=== PATIENT | female | born 2000 | race Caucasian/White ===

== ENCOUNTER 2022-01-01 11:13 | Observation (INO) ==
[2022-01-01] MEDS ORDERED: ONDANSETRON INJ 2 MG/ML 2 ML VIAL IV STA (11:55)
[2022-01-01] MEDS ORDERED: SODIUM CHLORIDE 0.9% 1000ML 1,000 ML IV STA (11:55)
--- NOTE | 2022-01-01 11:59 | Emergency Department Note ---
Impression & Plan Diarrhea, Transaminitis, Ketonuria, Acute hypokalemia ED Provider Note HISTORY OF PRESENT ILLNESS: Patient is a 21-year-old female presenting with diarrhea and dehydration. Patient reports that she has had persistent diarrhea daily for the last 9 days. Was seen in the emergency department 4 days ago and felt better after IV fluids and antiemetics. She states that since discharge, she has been having persistent episodes of mucus-filled and watery diarrhea. Reports nausea but no vomiting. Reports decreased oral intake over the last few days. She states she feels very rundown. Reports more than 6 episodes of diarrhea a day. Denies any recent travel. She was on oral antibiotics for UTI diagnosed 4 days ago. She reports that she was previously on antibiotics 3 weeks ago for an ear infection. Denies any recent exposure to contacts with similar symptoms. Denies any dysuria. Reports low-grade fevers at home. Reports generalized cramping abdominal pain. Denies any history of abdominal surgeries. Denies any rashes. ROS: Constitutional: No chills, or weakness +fever; +fatigue Skin: No rash or diaphoresis HENT: No headaches or congestion Eyes: No vision changes Cardio: No chest pain, palpitations or leg swelling Respiratory: No cough, wheezing or shortness of breath GI: No vomiting, constipation +nausea; +diarrhea : No dysuria, polyuria MSK: No joint or back pain Neuro: No loss of sensation, confusion, focal deficits, numbness, tingling Psychiatric: No mood changes PHYSICAL EXAM: Constitutional: Patient appears in no acute distress. HENT: Head: Normocephalic and atraumatic. Eyes: EOMI, PERRL Mouth/Throat: Mucous membranes dry. Neck: Trachea midline. Neck supple. Cardiovascular: Tachycardic with regular rhythm. No murmurs, rubs or gallops. Intact distal pulses. Pulmonary/Chest: No respiratory distress. Breath sounds clear and equal bilaterally. No wheezes or rales. No chest wall tenderness to palpation. Abdominal: BS +. Abdomen soft, no rebound or guarding. Generalized TTP. Back: No midline spinal tenderness, no paraspinal tenderness, no CVA ten derness. Musculoskeletal: No edema, tenderness or deformity noted. Skin: Warm and dry. No rash, erythema, pallor or cyanosis Psychiatric: Appropriate mood and affect for situation. Neurological: Alert and keenly responsive. CN II-XII grossly intact, moving all extremities equally and fully. MDM: - Vitals signs showed tachycardia. - Laboratory workup showed normal WBC; hypokalemia (K 3.0); transaminitis (AST 369; ALT 571) - UA significant for ketonuria. - Chart reviewed from patient's previous visit. Her transaminitis is significantly worsened from 4 days ago. I added an acetaminophen level to assess for further causes other than viral illness. - CT abdomen/pelvis with IV contrast showed diffuse colonic wall thickening suggestive of nonspecific colitis. She is also noted to have trace pleural effusions. - Patient given 1L NS in ER. - Oral potassium replacement ordered. - Stool studies ordered, but patient has not given stool sample yet. - Given her continued symptoms and transaminitis, hospitalist Dr. Trammell consulted for admission. - Patient admitted to hospitalist service for further evaluation and management. ASSESSMENT AND PLAN: Diagnosis: diarrheal illness; transaminitis; hypokalemia; ketonuria Plan: admit Past Med/Surg History Medical History ADHD Allergy-induced asthma inhaler prn Barretts esophagus GERD (gastroesophageal reflux disease) History of esophageal dilatation recently done 11/21/2019 Surgical History History of esophagogastroduodenoscopy (EGD) recently done 11/21/2019 @ [facility] History of wisdom tooth extraction Family History Family/Other Family history of diabetes mellitus cousin Grandfather (Maternal) Family history of diabetes mellitus Other No family history of adverse response to anesthesia Social History Smoking Status: Never smoker Second Hand Exposure: No; Hx Alcohol Use: No Hx Substance Use: No Preferred Language: Cypriot Communication Ability: Effective Catalyst Concentration Operator Required: No Beliefs That Will Affect Care: None Current Living Situation: Parent Current Living Situation Comment: Lives with mom Feels Safe at Home: Yes Assistive Devices: Contacts and Glasses Allergies Allergies Allergy/AdvReac Type Severity Reaction Status Date / Time cashew nut Allergy Severe throat/lip Verified 12/28/21 18:49 swelling pistachio nut Allergy Severe throat/lip Verified 12/28/21 18:49 swelling Home Meds Home Medications Medication Instructions Recorded Confirmed methylphenidate HCl 30 mg biphasic 30 mg PO QAM 12/22/19 12/28/21 30-70 capsule,extended release montelukast 10 mg tablet 10 mg PO HS 12/22/19 12/28/21 (Singulair) multivitamin 1 tab PO QAM 12/22/19 12/28/21 omeprazole 20 mg capsule,delayed 20 mg PO QAM 12/28/21 12/28/21 release Previous Rx's Medication Instructions Recorded cephalexin 500 mg capsule 500 mg PO BID 5 days #10 caps 12/28/21 Results & Data (ED) Vital Signs Vital Signs - 24 hr 01/01/22 11:19 01/01/22 12:59 01/01/22 13:00 Temperature 36.7 C Temperature Source Temporal Artery Scan Pulse Rate 116 H Pulse Rate [Finger] Pulse Rate from SpO2 Sensor 88 Pulse Rhythm Regular Pulse Rhythm [Finger] Pulse Strength Normal Pulse Strength [Finger] Respiratory Rate 20 Respiratory Effort / Characteristics Non-Labored Spontaneous Respiratory Depth Normal Respiratory Pattern Regular Blood Pressure 115/75 110/75 Blood Pressure [Right Arm] Blood Pressure Mean 88 86 Blood Pressure Mean [Right Arm] Blood Pressure Position Sitting Blood Pressure Position [Right Arm] Pulse Oximetry 96 96 Oxygen Delivery Method Room Air Sepsis Recent Fever Within 48 Hours No Sepsis New/Unexplained Change in Mental Status N/A Sepsis Action Taken by Nursing No Action Required 01/01/22 13:00 01/01/22 18:21 01/01/22 18:21 Temperature Temperature Source Pulse Rate Pulse Rate [Finger] Pulse Rate from SpO2 Sensor 86 94 H Pulse Rhythm Pulse Rhythm [Finger] Pulse Strength Pulse Strength [Finger] Respiratory Rate Respiratory Effort / Characteristics Respiratory Depth Respiratory Pattern Blood Pressure 123/71 Blood Pressure [Right Arm] Blood Pressure Mean 88 Blood Pressure Mean [Right Arm] Blood Pressure Position Blood Pressure Position [Right Arm] Pulse Oximetry 96 95 Oxygen Delivery Method Sepsis Recent Fever Within 48 Hours Sepsis New/Unexplained Change in Mental Status Sepsis Action Taken by Nursing 01/01/22 18:30 01/01/22 15:30 Temperature Temperature Source Pulse Rate Pulse Rate [Finger] 88 Pulse Rate from SpO2 Sensor 91 H Pulse Rhythm Pulse Rhythm [Finger] Regular Pulse Strength Pulse Strength [Finger] Normal Respiratory Rate 18 Respiratory Effort / Characteristics Non-Labored Spontaneous Respiratory Depth Normal Respiratory Pattern Blood Pressure Blood Pressure [Right Arm] 119/78 Blood Pressure Mean Blood Pressure Mean [Right Arm] 91 Blood Pressure Position Blood Pressure Position [Right Arm] Lying Pulse Oximetry 94 97 Oxygen Delivery Method Room Air Sepsis Recent Fever Within 48 Hours Sepsis New/Unexplained Change in Mental Status Sepsis Action Taken by Nursing Laboratory Data Result diagrams: 01/01/22 11:41 01/01/22 12:46 Lab Results 01/01/22 01/01/22 01/01/22 Range/Units 11:41 11:41 11:41 WBC 8.64 (4.8-10.8) K/ul RBC 5.00 (3.93-5.22) M/uL Hgb 14.0 (12.0-16.0) g/dl Hct 40.1 (34.1-44.9) % MCV 80.2 (80.0-100.0) fL MCH 28.0 (25.0-34.0) pg MCHC 34.9 (32.0-36.0) g/dL RDW Std Deviation 35.9 L (36.4-46.3) fL RDW Coeff of Bob 12.6 (11.5-14.5) % Plt Count 243 (130-400) K/uL MPV 11.1 (9.4-12.3) fL Neutrophils % (Manual) 39 % Lymphocytes % (Manual) 21 % Reactive Lymphs % (Man) 35 % Monocytes % (Manual) 5 % Neutrophils # (Manual) 3.37 (1.4-6.5) K/uL Lymphocytes # (Manual) 1.81 (1.2-3.4) K/uL Reactive Lymphs # 3.02 K/uL Monocytes # (Manual) 0.43 (0.24-0.82) K/uL Echinocytes 1+ Sodium 134 L (136-145) mmol/L Potassium TNP Chloride 99 (98-107) mmol/L Carbon Dioxide 23 (21-32) mmol/L Anion Gap 12 H (3-11) BUN 6 (6-23) mg/dl Creatinine 0.59 L (0.6-1.2) mg/dl Est Cr Clr Drug Dosing 147.9 ml/min Est GFR ( Amer) > 150.0 ml/min Est GFR (Non-Af Amer) 130.1 ml/min BUN/Creatinine Ratio 10.2 (10-20) Glucose 79 (70-99(Fasting)) mg/dl Lactate 0.8 (0.4-2.0) mmol/L Calcium 8.7 (8.5-10.1) mg/dl Magnesium 2.1 (1.7-2.4) mg/dl Total Bilirubin 0.7 (0.2-1.0) mg/dl AST TNP ALT 571 H (7-52) U/L Alkaline Phosphatase 195 H (34-104) U/L Total Protein 7.9 (6.0-8.3) gm/dl Albumin 4.1 (3.4-5.0) gm/dl Globulin 3.8 (2.5-4.0) gm/dl Albumin/Globulin Ratio 1.1 (0.9-2) Lipase 40 (11-82) U/L Urine Color Urine Appearance (Clear) Urine pH (4.5-7.5) Ur Specific [place] (1.000-1.030) Urine Protein (Negative) Urine Glucose (UA) (Negative) Urine Ketones (Negative) Urine Blood (Negative) Urine Nitrite (Negative) Urine Bilirubin (Negative) Urine Urobilinogen (Negative) Ur Leukocyte Esterase (Negative) Urine WBC (Auto) (0-5) /hpf Urine RBC (Auto) (0-4) /hpf U Hyaline Cast (Auto) (0-5) /lpf U Epithel Cells (Auto) (0-5) /lpf Urine Bacteria (Auto) (Negative) POC Ur Test (NEG) 01/01/22 01/01/22 01/01/22 Range/Units 12:20 12:36 12:46 WBC (4.8-10.8) K/ul RBC (3.93-5.22) M/uL Hgb (12.0-16.0) g/dl Hct (34.1-44.9) % MCV (80.0-100.0) fL MCH (25.0-34.0) pg MCHC (32.0-36.0) g/dL RDW Std Deviation (36.4-46.3) fL RDW Coeff of Bob (11.5-14.5) % Plt Count (130-400) K/uL MPV (9.4-12.3) fL Neutrophils % (Manual) % Lymphocytes % (Manual) % Reactive Lymphs % (Man) % Monocytes % (Manual) % Neutrophils # (Manual) (1.4-6.5) K/uL Lymphocytes # (Manual) (1.2-3.4) K/uL Reactive Lymphs # K/uL Monocytes # (Manual) (0.24-0.82) K/uL Echinocytes Sodium (136-145) mmol/L Potassium 3.0 L Chloride (98-107) mmol/L Carbon Dioxide (21-32) mmol/L Anion Gap (3-11) BUN (6-23) mg/dl Creatinine (0.6-1.2) mg/dl Est Cr Clr Drug Dosing ml/min Est GFR ( Amer) ml/min Est GFR (Non-Af Amer) ml/min BUN/Creatinine Ratio (10-20) Glucose (70-99(Fasting)) mg/dl Lactate (0.4-2.0) mmol/L Calcium (8.5-10.1) mg/dl Magnesium (1.7-2.4) mg/dl Total Bilirubin (0.2-1.0) mg/dl AST 369 H ALT (7-52) U/L Alkaline Phosphatase (34-104) U/L Total Protein (6.0-8.3) gm/dl Albumin (3.4-5.0) gm/dl Globulin (2.5-4.0) gm/dl Albumin/Globulin Ratio (0.9-2) Lipase (11-82) U/L Urine Color Dark Yellow Urine Appearance Cloudy A (Clear) Urine pH 6.0 (4.5-7.5) Ur Specific [place] 1.020 (1.000-1.030) Urine Protein 1+ H (Negative) Urine Glucose (UA) Negative (Negative) Urine Ketones 4+ H (Negative) Urine Blood 3+ H (Negative) Urine Nitrite Negative (Negative) Urine Bilirubin Negative (Negative) Urine Urobilinogen Negative (Negative) Ur Leukocyte Esterase Trace H (Negative) Urine WBC (Auto) 5-10 H (0-5) /hpf Urine RBC (Auto) 5-10 H (0-4) /hpf U Hyaline Cast (Auto) 5-10 H (0-5) /lpf U Epithel Cells (Auto) >30 H (0-5) /lpf Urine Bacteria (Auto) Negative (Negative) POC Ur Test NEG (NEG) Administered Medications Discontinued Medications Sodium Chloride (Nss 1000ml) 1,000 mls @ 999 mls/hr IV .Q1H1M STA Stop: 01/01/22 12:55 Last Infusion: 01/01/22 14:56 Dose: 0 mls/hr Documented By: [id number] Admin: 01/01/22 12:13 Dose: 999 mls/hr Documented By: [id number] Ioversol (Optiray 350 100ml) 86 ml IV ONCE ONE Stop: 01/01/22 13:15 Last Admin: 01/01/22 13:14 Dose: 86 ml Documented By: [facility] Ondansetron HCl (Ondansetron Inj 2 Mg/Ml 2 Ml Vial) 4 mg IV NOW STA Stop: 01/01/22 11:56 Last Admin: 01/01/22 12:13 Dose: 4 mg Documented By: [id number] Potassium Chloride (Potassium Chloride 20 Meq/15 Ml Udc) 40 meq PO NOW STA Stop: 01/01/22 19:10 Last Admin: 01/01/22 19:19 Dose: 40 meq Documented By: [facility] Imaging Data Radiologist's Impression: Abdomen/Pelvis CT 01/01/22 11:[address] WITH IV CONTRAST CT DOSE: 824.88 mGycm HISTORY: Acute generalized abdominal pain with diarrhea diarrhea x10 days TECHNIQUE: Multiaxial CT images of the abdomen and pelvis were performed following the IV administration of 86 cc of Optiray, A dose lowering technique was utilized adhering to the principles of ALARA. COMPARISON STUDY: None. FINDINGS: Trace pleural effusions, left greater the right. Subsegmental groundglass opacities favor atelectasis. No pneumatosis or pneumoperitoneum. The spleen is mildly enlarged, 14 cm. Unremarkable pancreas, gallbladder and adrenal glands. The liver is within normal limits. Patency of the hepatic and portal ve ins. Unremarkable kidneys. No hydronephrosis. Decompressed urinary bladder. Uterus and adnexa are within normal limits. Aorta and IVC are unremarkable. Small amount of free pelvic fluid. Subcentimeter and borderline enlarged lymph nodes are present within the pelvis and right lower quadrant mesentery. There is mild diffuse wall thickening throughout the colon with scattered large and small bowel air-fluid levels. Minimal colonic diverticulosis. The terminal ileum is unremarkable. The visualized appendix appears noninflamed. No acute fracture. Mild lumbar levoscoliosis. IMPRESSION: 1. No bowel obstruction or pneumoperitoneum. 2. Mild diffuse wall thickening throughout the large bowel suggestive of a nonspecific colitis, likely infectious or inflammatory. 3. Scattered small and large bowel air-fluid levels suggest enteritis with diarrheal illness. 4. Borderline enlarged lymph nodes of the abdomen and pelvis may be reactive. 5. No CT evidence of acute appendicitis. 6. Trace pleural effusions. ACT 112: Negative or not required by law. The above report was generated using voice recognition software. It may contain grammatical, syntax or spelling errors. Electronically signed by: Ike Bolton M.D. 01/01/2022 1:40 PM Discharge Plan Visit Data Chief Complaint: Abdominal Pain Stated Complaint: FEVER, DIARRHEA, NAUSEA ED Provider: Yuridia Tovar Discharge Problem: Diarrhea, Transaminitis, Ketonuria, Acute hypokalemia Patient Disposition: Admitted As Inpatient Forms Stand Alone Forms: [facility] Prescriptions Prescriptions: No Action methylphenidate HCl 30 mg Capsule, Er Biphasic 30-70 30 mg PO QAM montelukast [Singulair] 10 mg Tablet 10 mg PO HS multivitamin Tablet 1 tab PO QAM omeprazole 20 mg capsule,delayed release(DR/EC) 20 mg PO QAM cephalexin 500 mg capsule 500 mg PO BID 5 Days Qty: 10 0RF Referrals Referrals: Silvana Chowdhury MD [Primary Care Provider] -
[2022-01-01 12:11] LABS: Hematocrit (blood only) 40.1 % (34.1-44.9); Mean Corpuscular Hgb Conc 34.9 g/dL (32.0-36.0); Mean Corpuscular Volume 80.2 fL (80.0-100.0); Mean Platelet Volume 11.1 fL (9.4-12.3); Platelet Count 243 K/uL (130-400); RDW Coefficient of Variation 12.6 % (11.5-14.5); RDW Standard Deviation 35.9 fL (36.4-46.3); White Blood Count 8.64 K/ul (4.8-10.8)
[2022-01-01 12:39] LABS: Albumin Globulin Ratio 1.1 (0.9-2); Albumin Level 4.1 gm/dl (3.4-5.0); Alkaline Phosphatase 195 U/L (34-104); Anion Gap 12 (3-11); BUN Creatinine Ratio 10.2 (10-20); Bilirubin,Total 0.7 mg/dl (0.2-1.0); Blood Urea Nitrogen 6 mg/dl (6-23); Calcium 8.7 mg/dl (8.5-10.1); Carbon Dioxide 23 mmol/L (21-32); Chloride 99 mmol/L (98-107); Creatinine Clr Calc Pharmacy 147.9 ml/min; Est GFR (African American) > 150.0 ml/min; Est GFR (Non-African American) 130.1 ml/min; Globulin 3.8 gm/dl (2.5-4.0); Glucose 79 mg/dl (70-99(Fasting)); Lipase 40 U/L (11-82); Magnesium 2.1 mg/dl (1.7-2.4); Sodium 134 mmol/L (136-145); Total Protein 7.9 gm/dl (6.0-8.3)
[2022-01-01 12:45] LABS: Alanine Aminotransferase 571 U/L (7-52); Echinocytes 1+; Lymphocytes # (manual) 1.81 K/uL (1.2-3.4); Lymphocytes % (manual) 21 %; Monocytes # (manual) 0.43 K/uL (0.24-0.82); Monocytes % (manual) 5 %; Neutrophils # (manual) 3.37 K/uL (1.4-6.5); Neutrophils % (manual) 39 %; Reactive Lymphocytes # (manual) 3.02 K/uL; Reactive Lymphocytes % (manual) 35 %
[2022-01-01 12:55] LABS: Appearance Urine Cloudy (Clear); Bacteria Urine Automated Negative (Negative); Bilirubin Urine Negative (Negative); Blood Urine 3+ (Negative); Color Urine Dark Yellow; Epithelial Cell Urine Auto >30 /lpf (0-5); Glucose Urine UA Negative (Negative); Ketones Urine 4+ (Negative); Leukocyte Esterase Urine Trace (Negative); Nitrite Urine Negative (Negative); Protein Urine 1+ (Negative); Urobilinogen Urine Negative (Negative)
[2022-01-01] MEDS ORDERED: OPTIRAY 350 100ml IV ONE (13:14)
--- NOTE | 2022-01-01 13:43 | CT Scan Report ---
ABDOMEN AND PELVIS CT WITH IV CONTRAST CT DOSE: 824.88 mGycm HISTORY: Acute generalized abdominal pain with diarrhea diarrhea x10 days TECHNIQUE: Multiaxial CT images of the abdomen and pelvis were performed following the IV administrat ion of 86 cc of Optiray, A dose lowering technique was utilized adhering to the principles of ALARA. COMPARISON STUDY: None. FINDINGS: Trace pleural effusions, left greater the right. Subsegmental groundglass opacities favor a telectasis. No pneumatosis or pneumoperitoneum. The spleen is mildly enlarged, 14 cm. Unremarkable pa ncreas, gallbladder and adrenal glands. The liver is within normal limits. Patency of the hepatic and portal veins. Unremarkable kidneys. No hydronephrosis. Decompressed urinary bladder. Uterus and adnexa are within n ormal limits. Aorta and IVC are unremarkable. Small amount of free pelvic fluid. Subcentimeter and jay rderline enlarged lymph nodes are present within the pelvis and right lower quadrant mesentery. There is mild diffuse wall thickening throughout the colon with scattered large and small bowel air-fluid levels. Minimal colonic diverticulosis. The terminal ileum is unremarkable. The visualized appendix a ppears noninflamed. No acute fracture. Mild lumbar levoscoliosis. IMPRESSION: 1. No bowel obstruction or pneumoperitoneum. 2. Mild diffuse wall thickening throughout the large bowel suggestive of a nonspecific colitis, likel y infectious or inflammatory. 3. Scattered small and large bowel air-fluid levels suggest enteritis with diarrheal illness. 4. Borderline enlarged lymph nodes of the abdomen and pelvis may be reactive. 5. No CT evidence of acute appendicitis. 6. Trace pleural effusions. ACT 112: Negative or not required by law. The above report was generated using voice recognition software. It may contain grammatical, syntax o r spelling errors. Electronically signed by: Ike Bolton M.D. 01/01/2022 1:40 PM
[2022-01-01] MEDS ORDERED: POTASSIUM CHLORIDE 20 MEQ/15 ML UDC PO STA (19:09)
[2022-01-01] MEDS ORDERED: POTASSIUM CHLORIDE PWD 20 MEQ PACK PO STA (19:31)
[2022-01-01] MEDS ORDERED: LACTATED RINGER'S 1,000 ML IV ONE (19:31)
--- NOTE | 2022-01-01 20:33 | History & Physical Report ---
Date of Service January 01, 2022 Assessment & Plan (1) Abdominal pain: Plan: C. difficile colitis Recent antibiotic Rx Patient nontoxic Transaminitis secondary to illness Rule out viral hepatitis given skin tattoo Hypokalemia secondary to gastroenteritis ADD, stable bronchial asthma, controlled eosinophilic esophagitis, stable OBS Vancomycin course Follow LFTs Acute hepatitis panel GI consult if with progression of LFTs Replace potassium DVT prophylaxis. SCDs Full code Patient mother requesting updates from providers. Ms. Stefania Edwards, contact #[phone]. Text document was generated using [employer] voice recognition software. It may contain grammatical or spelling errors. Kindly contact undersigned for clarification of any documentation item in question. History of Present Illness Chief Complaint: Worsening diarrhea Primary Care Provider: Silvana Chowdhury MD History obtained from patient, family, and records. Medical history significant for ADD, bronchial asthma, eosinophilic esophagitis. 1 week history of watery diarrhea symptoms with some lower abdominal cramping, nausea, vomiting symptoms. Transient hematochezia symptoms. Denies dysuria. Low-grade fever at home. No known sick contacts, no out-of-town travel, unusual restaurant food. Augmentin course last month for possible ear infection. Patient seen at the ER 4 days ago. LFTs noted to be abnormal. Denies Tylenol overuse. Tattoo on a hand months ago. Patient discharged on Keflex for possible UTI. Patient returned to ER for worsening symptoms. Medical History as above Surgical History : Dental surgery Family History : Brain cancer; negative IBD Personal/Social history : Non-smoker, no EtOH intake, currently unemployed Allergies Allergy/AdvReac Type Severity Reaction Status Date / Time cashew nut Allergy Severe throat/lip Verified 01/01/22 20:40 swelling pistachio nut Allergy Severe throat/lip Verified 01/01/22 20:40 swelling Home Medications Medication Instructions Recorded Confirmed Type methylphenidate HCl 30 mg biphasic 30 mg PO QAM 12/22/19 01/01/22 History 30-70 capsule,extended release montelukast 10 mg tablet 10 mg PO HS 12/22/19 01/01/22 History (Singulair) multivitamin 1 tab PO QAM 12/22/19 01/01/22 History omeprazole 20 mg capsule,delayed 20 mg PO QAM 12/28/21 01/01/22 History release cetirizine 10 mg tablet (Zyrtec) 10 mg PO HS 01/01/22 01/01/22 History diphenhydramine HCl 25 mg capsule 50 mg PO .Q 4-6HOURS PRN Allergic 01/01/22 01/01/22 History (Benadryl) Reaction epinephrine 0.3 mg/0.3 mL 0.3 mg IM UD PRN Allergic Reaction 01/01/22 01/01/22 History injection, auto-injector (EpiPen) Past Med/Surg History Medical History ADHD Allergy-induced asthma inhaler prn Barretts esophagus GERD (gastroesophageal reflux disease) History of esophageal dilatation recently done 11/21/2019 Surgical History History of esophagogastroduodenoscopy (EGD) recently done 11/21/2019 @ [facility] History of wisdom tooth extraction Family History Family/Other Family history of diabetes mellitus cousin Grandfather (Maternal) Family history of diabetes mellitus Other No family history of adverse response to anesthesia Social History Smoking Status: Never smoker Second Hand Exposure: No; Do You Dip or Chew Tobacco: No; Tobacco Cessation Education Requested by Patient: No Hx Alcohol Use: No Hx Substance Use: No Preferred Language: Macanese Communication Ability: Effective Service Aide Required: No Beliefs That Will Affect Care: None Current Living Situation: Parent Current Living Situation Comment: Lives at home with parents Other Information That Helps Us Care for You: No Feels Safe at Home: Yes Safety Concerns: Feels Safe At This Time Assistive Devices: Glasses Review of Systems Review of Systems: As per HPI, all other systems reviewed and negative Physical Exam Physical Exam: GENERAL: Comfortable, obese, pleasant, slightly anxious, no respiratory distress SKIN: Normal color, warm HEENT: Leupp palpebral conjunctivae, no ptosis, dry buccal mucosa NECK : Supple, no tenderness CHEST : CTA, no tenderness HEART : RRR, no obvious murmurs ABDOMEN: Some distention, hypogastric tenderness EXTREMITIES : No LE swelling/tenderness, no other conspicuous deformities noted NEUROLOGIC : Coherent, no facial asymmetry, no other gross focality Results & Data Results & Data ([facility]) Vital Signs (Past 12 Hours) Vital Signs Temp Pulse Pulse Resp BP BP Pulse Ox 01/01/22 15:30 88 18 119/78 97 01/01/22 18:30 94 01/01/22 18:21 95 01/01/22 18:21 123/71 01/01/22 13:00 96 01/01/22 13:00 110/75 01/01/22 12:59 96 01/01/22 11:19 36.7 C 116 H 20 115/75 96 O2 Del Method 01/01/22 15:30 Room Air 01/01/22 18:30 01/01/22 18:21 01/01/22 18:21 01/01/22 13:00 01/01/22 13:00 01/01/22 12:59 01/01/22 11:19 Room Air Laboratory Results Laboratory Results WBC 8.64 K/ul (4.8-10.8) 01/01/22 11:41 RBC 5.00 M/uL (3.93-5.22) 01/01/22 11:41 Hgb 14.0 g/dl (12.0-16.0) 01/01/22 11:41 Hct 40.1 % (34.1-44.9) 01/01/22 11:41 MCV 80.2 fL (80.0-100.0) 01/01/22 11:41 MCH 28.0 pg (25.0-34.0) 01/01/22 11:41 MCHC 34.9 g/dL (32.0-36.0) 01/01/22 11:41 RDW Std Deviation 35.9 fL (36.4-46.3) L 01/01/22 11:41 RDW Coeff of Bob 12.6 % (11.5-14.5) 01/01/22 11:41 Plt Count 243 K/uL (130-400) 01/01/22 11:41 MPV 11.1 fL (9.4-12.3) 01/01/22 11:41 Neutrophils % (Manual) 39 % 01/01/22 11:41 Lymphocytes % (Manual) 21 % 01/01/22 11:41 Reactive Lymphs % (Man) 35 % 01/01/22 11:41 Monocytes % (Manual) 5 % 01/01/22 11:41 Neutrophils # (Manual) 3.37 K/uL (1.4-6.5) 01/01/22 11:41 Lymphocytes # (Manual) 1.81 K/uL (1.2-3.4) 01/01/22 11:41 Reactive Lymphs # 3.02 K/uL 01/01/22 11:41 Monocytes # (Manual) 0.43 K/uL (0.24-0.82) 01/01/22 11:41 Echinocytes 1+ 01/01/22 11:41 Sodium 134 mmol/L (136-145) L 01/01/22 11:41 Potassium 3.0 mmol/L (3.5-5.1) L 01/01/22 12:46 Chloride 99 mmol/L (98-107) 01/01/22 11:41 Carbon Dioxide 23 mmol/L (21-32) 01/01/22 11:41 Anion Gap 12 (3-11) H 01/01/22 11:41 BUN 6 mg/dl (6-23) 01/01/22 11:41 Creatinine 0.59 mg/dl (0.6-1.2) L 01/01/22 11:41 Est Cr Clr Drug Dosing 147.9 ml/min 01/01/22 11:41 Est GFR ( Amer) > 150.0 ml/min 01/01/22 11:41 Est GFR (Non-Af Amer) 130.1 ml/min 01/01/22 11:41 BUN/Creatinine Ratio 10.2 (10-20) 01/01/22 11:41 Glucose 79 mg/dl (70-99(Fasting)) 01/01/22 11:41 Lactate 0.8 mmol/L (0.4-2.0) 01/01/22 11:41 Calcium 8.7 mg/dl (8.5-10.1) 01/01/22 11:41 Magnesium 2.1 mg/dl (1.7-2.4) 01/01/22 11:41 Total Bilirubin 0.7 mg/dl (0.2-1.0) 01/01/22 11:41 AST 369 U/L (13-39) H 01/01/22 12:46 ALT 571 U/L (7-52) H 01/01/22 11:41 Alkaline Phosphatase 195 U/L (34-104) H 01/01/22 11:41 Total Protein 7.9 gm/dl (6.0-8.3) 01/01/22 11:41 Albumin 4.1 gm/dl (3.4-5.0) 01/01/22 11:41 Globulin 3.8 gm/dl (2.5-4.0) 01/01/22 11:41 Albumin/Globulin Ratio 1.1 (0.9-2) 01/01/22 11:41 Lipase 40 U/L (11-82) 01/01/22 11:41 Urine Color Dark Yellow 01/01/22 12:20 Urine Appearance Cloudy (Clear) A 01/01/22 12:20 Urine pH 6.0 (4.5-7.5) 01/01/22 12:20 Ur Specific [place] 1.020 (1.000-1.030) 01/01/22 12:20 Urine Protein 1+ (Negative) H 01/01/22 12:20 Urine Glucose (UA) Negative (Negative) 01/01/22 12:20 Urine Ketones 4+ (Negative) H 01/01/22 12:20 Urine Blood 3+ (Negative) H 01/01/22 12:20 Urine Nitrite Negative (Negative) 01/01/22 12:20 Urine Bilirubin Negative (Negative) 01/01/22 12:20 Urine Urobilinogen Negative (Negative) 01/01/22 12:20 Ur Leukocyte Esterase Trace (Negative) H 01/01/22 12:20 Urine WBC (Auto) 5-10 /hpf (0-5) H 01/01/22 12:20 Urine RBC (Auto) 5-10 /hpf (0-4) H 01/01/22 12:20 U Hyaline Cast (Auto) 5-10 /lpf (0-5) H 01/01/22 12:20 U Epithel Cells (Auto) >30 /lpf (0-5) H 01/01/22 12:20 Urine Bacteria (Auto) Negative (Negative) 01/01/22 12:20 POC Ur Test NEG (NEG) 01/01/22 12:36 Impressions Abdomen/Pelvis CT 01/01/22 11:[address] WITH IV CONTRAST CT DOSE: 824.88 mGycm HISTORY: Acute generalized abdominal pain with diarrhea diarrhea x10 days TECHNIQUE: Multiaxial CT images of the abdomen and pelvis were performed following the IV administration of 86 cc of Optiray, A dose lowering technique was utilized adhering to the principles of ALARA. COMPARISON STUDY: None. FINDINGS: Trace pleural effusions, left greater the right. Subsegmental grou ndglass opacities favor atelectasis. No pneumatosis or pneumoperitoneum. The spleen is mildly enlarged, 14 cm. Unremarkable pancreas, gallbladder and adrenal glands. The liver is within normal limits. Patency of the hepatic and portal veins. Unremarkable kidneys. No hydronephrosis. Decompressed urinary bladder. Uterus and adnexa are within normal limits. Aorta and IVC are unremarkable. Small isabel unt of free pelvic fluid. Subcentimeter and borderline enlarged lymph nodes are present within the pelvis and right lower quadrant mesentery. There is mild diffuse wall thickening throughout the colon with scattered large and small bowel air-fluid levels. Minimal colonic diverticulosis. The terminal ileum is unremarkable. The visualized appendix appears noninflamed. No acute fracture. Mild lumbar levoscoliosis. IMPRESSION: 1. No bowel obstruction or pneumoperitoneum. 2. Mild diffuse wall thickening throughout the large bowel suggestive of a nonspecific colitis, likely infectious or inflammatory. 3. Scattered small and large bowel air-fluid levels suggest enteritis with diarrheal illness. 4. Borderline enlarged lymph nodes of the abdomen and pelvis may be reactive. 5. No CT evidence of acute appendicitis. 6. Trace pleural effusions. ACT 112: Negative or not required by law. The above report was generated using voice recognition software. It may contain grammatical, syntax or spelling errors. Electronically signed by: Ike Bolton M.D. 01/01/2022 1:40 PM
[2022-01-01 21:35] LABS: Adenovirus F 40/41 PCR Not Detected (NotDetected); Astrovirus PCR Not Detected (NotDetected); Campylobacter PCR Not Detected (NotDetected); Cryptosporidium PCR Not Detected (NotDetected); Cyclospora cayetanensis PCR Not Detected (NotDetected); Entamoeba histolytica PCR Not Detected (NotDetected); Enteroaggregative E.coli(EAEC) Not Detected (NotDetected); Enteropathogenic E.coli (EPEC) Not Detected (NotDetected); Enterotoxigenic E.coli (ETEC) Not Detected (NotDetected); Giardia lamblia PCR Not Detected (NotDetected); Norovirus GI/GII PCR Not Detected (NotDetected); Plesiomonas shigelloides PCR Not Detected (NotDetected); Rotavirus A PCR Not Detected (NotDetected); Salmonella PCR Not Detected (NotDetected); Sapovirus PCR Not Detected (NotDetected); Shiga-like Toxin E.coli (STEC) Not Detected (NotDetected); Shigella/Enteroinvasive E.coli Not Detected (NotDetected); Vibrio cholerae PCR Not Detected (NotDetected); Vibrio species PCR Not Detected (NotDetected); Yersinia enterocolitica PCR Not Detected (NotDetected)
[2022-01-01 21:59] LABS: Cdiff Antigen Positive; Cdiff Toxin A+B Positive Cdiff Toxin (Negative)
[2022-01-01] MEDS ORDERED: PROMETHAZINE HCL 12.5 MG in SODIUM CHLORIDE 0.9% 50 ML IV PRN (23:07)
[2022-01-01] MEDS ORDERED: KETOROLAC TROMETHAMINE 15 MG/ML VIAL IV PRN (23:07)
[2022-01-01] MEDS ORDERED: ACETAMINOPHEN 500 MG TAB PO PRN (23:07)
[2022-01-02] MEDS: CETIRIZINE HCL 10 MG TABLET PO SCH ×2 (00:20→20:50)
[2022-01-02] MEDS: MONTELUKAST SODIUM 10 MG TABLET PO SCH ×2 (00:20→20:50)
[2022-01-02] MEDS: VANCOMYCIN HCL 125 MG/2.5ML SOLN PO SCH ×4 (04:12→23:23)
[2022-01-02] MEDS: RASPBERRY SYRUP 5 ML UDP PO SCH ×4 (04:12→23:23)
[2022-01-02 06:01] LABS: Hematocrit (blood only) 35.4 % (34.1-44.9); Hemoglobin 12.1 g/dl (12.0-16.0); Mean Corpuscular Hemoglobin 27.6 pg (25.0-34.0); Mean Corpuscular Hgb Conc 34.2 g/dL (32.0-36.0); Mean Corpuscular Volume 80.6 fL (80.0-100.0); Mean Platelet Volume 10.3 fL (9.4-12.3); Platelet Count 226 K/uL (130-400); RDW Coefficient of Variation 12.8 % (11.5-14.5); RDW Standard Deviation 37.4 fL (36.4-46.3); Red Blood Count 4.39 M/uL (3.93-5.22); White Blood Count 7.76 K/ul (4.8-10.8)
[2022-01-02 06:18] LABS: INR 1.2 (0.9-1.1); Prothrombin Time 12.6 Seconds (9.0-12.0)
[2022-01-02 06:23] LABS: Alanine Aminotransferase 449 U/L (7-52); Albumin Globulin Ratio 1.2 (0.9-2); Albumin Level 3.5 gm/dl (3.4-5.0); Alkaline Phosphatase 155 U/L (34-104); Anion Gap 9 (3-11); Aspartate Aminotransferase 338 U/L (13-39); BUN Creatinine Ratio 7.7 (10-20); Bilirubin,Total 0.5 mg/dl (0.2-1.0); Blood Urea Nitrogen 4 mg/dl (6-23); Calcium 8.1 mg/dl (8.5-10.1); Carbon Dioxide 23 mmol/L (21-32); Chloride 103 mmol/L (98-107); Creatinine Clr Calc Pharmacy 168.8 ml/min; Est GFR (African American) > 150.0 ml/min; Est GFR (Non-African American) 135.6 ml/min; Glucose 72 mg/dl (70-99(Fasting)); Potassium 3.2 mmol/L (3.5-5.1); Sodium 135 mmol/L (136-145); Total Protein 6.5 gm/dl (6.0-8.3)
[2022-01-02 07:12] LABS: Basophils # (manual) 0.16 K/uL (0-0.2); Basophils % (manual) 2 %; Eosinophils # (manual) 0.16 K/uL (0-0.50); Eosinophils % (manual) 2 %; Lymphocytes # (manual) 2.02 K/uL (1.2-3.4); Lymphocytes % (manual) 26 %; Monocytes # (manual) 0.62 K/uL (0.24-0.82); Monocytes % (manual) 8 %; Neutrophils # (manual) 2.72 K/uL (1.4-6.5); Neutrophils % (manual) 35 %; Reactive Lymphocytes # (manual) 2.17 K/uL; Reactive Lymphocytes % (manual) 28 %
[2022-01-02] MEDS ORDERED: POTASSIUM CHLORIDE CRTAB 20 MEQ TABCR PO STA (08:10)
[2022-01-02] MEDS: METHYLPHENIDATE HCL 10 MG TABLET PO SCH ×2 (09:17→15:58)
[2022-01-02] MEDS: SODIUM CHLORIDE 0.9% 1000ML 1,000 ML IV SCH ×2 (09:17→17:48)
[2022-01-02] MEDS: PANTOprazole 40 MG TAB PO SCH (09:18)
[2022-01-02] MEDS: MULTIVITAMIN TAB PO SCH (09:18)
--- NOTE | 2022-01-02 14:05 | Hospitalist Progress Note ---
Date of Service January 02, 2022 Assessment & Plan (1) C. difficile colitis: Plan: Presented with 2-3 weeks of diarrhea, nausea, and abdominal pain. Patient reports being on several courses of antibiotics over the past few months for ear infections. Was seen in ED on 12/28, diagnosed with UTI and placed on cephalexin. C. Diff + on admission CT abd/pelvis: 1. No bowel obstruction or pneumoperitoneum. 2. Mild diffuse wall thickening throughout the large bowel suggestive of a nonspecific colitis, likely infectious or inflammatory. 3. Scattered small and large bowel air-fluid levels suggest enteritis with diarrheal illness. 4. Borderline enlarged lymph nodes of the abdomen and pelvis may be reactive. 5. No CT evidence of acute appendicitis. 6. Trace pleural effusions. First episode of C. Diff On PO Vanco Patient improving, tolerating clear liquids. Continue IVF through today, advance diet tomorrow, likely d/c tomorrow (2) Hypokalemia: Plan: K+ 3.2 Likely due to GI loss w/ diarrhea Replace, follow electrolytes (3) Transaminitis: Plan: T. bili 0.5 (0.7), AST 338 (369), ALT 449 (571), alk phos 155 (195) Likely 2/2 acute illness Hepatitis panel pending Follow LFTs, consider GI eval if not improving (4) ADHD: Plan: Continue methylphenidate (5) GERD (gastroesophageal reflux disease): (6) Barretts esophagus: Plan: Continue PPI (7) DVT prophylaxis: Plan: SCDs, ambulate Plan Attending Addendum: care coordinated with SHORTY Boyce please refer to her notes for full details, I agree with her notes patient seen and examined, records reviewed by myself as well on exam, patient seen comfortable, resting in bed She is feeling better compared to yesterday No diarrhea since this morning Abdominal pain, nausea vomiting, fevers or chills No chest pain, shortness of breath, dizziness No other symptoms diagnoses and plan of care as per SHORTY Boyce's notes Hayden Fuentes MD Admission and Anticipated Discharge Date Admission Date: January 01, 2022 Subjective Follow up for C. Diff colitis. Patient seen and examined. Resting in bed. Reports feeling improved, last episode of diarrhea last evening. Tolerating clear liquids. Denies abdominal pain and nausea. Afebrile Denies chest pain and shortness of breath. No lightheadedness or dizziness. Review of Systems Review of Systems: ROS per HPI, all other systems reviewed and negative Physical Exam Constitutional: WD/WN, vitals as above no acute distress (resting in bed) Respiratory: normal respiratory effort, lungs clear to auscultation Cardiovascular: Rate/Rhythm: regular rate and regular rhythm Vessels: normal peripheral pulses Extremities: no edema Gastrointestinal (Abdomen): Percussion/Palpation: abdomen soft; abdomen nontender Skin: no rashes, warm and dry Neurologic: no focal motor deficits Psychiatric: A+Ox3, euthymic affect Results & Data Results & Data ([facility]) Vital Signs (Past 12 Hours) Vital Signs Temp Pulse Resp BP Pulse Ox O2 Del Method 01/02/22 06:39 37.1 C 87 18 105/69 95 Room Air Laboratory Results Short CBC 01/02/22 Range/Units 05:37 WBC 7.76 (4.8-10.8) K/ul Hgb 12.1 (12.0-16.0) g/dl Hct 35.4 (34.1-44.9) % Plt Count 226 (130-400) K/uL BMP 01/02/22 05:37 Sodium 135 L Potassium 3.2 L Chloride 103 Carbon Dioxide 23 BUN 4 L Creatinine 0.52 L Glucose 72 Calcium 8.1 L Liver Function 01/02/22 Range/Units 05:37 Total Bilirubin 0.5 (0.2-1.0) mg/dl AST 338 H (13-39) U/L ALT 449 H (7-52) U/L Alkaline Phosphatase 155 H (34-104) U/L Albumin 3.5 (3.4-5.0) gm/dl
--- NOTE | 2022-01-02 15:25 | Student Report ---
[facility] Med Student Progress Note Date of Service Date of service: January 02, 2022 Subjective Subjective: 21 yo female patient with approximately 9 day hx of diarrhea and dehydration, now C.Diff positive. Per patient she has had frequent ear infections over the past several months and been taking antibiotics. She currently feels that her symptoms have greatly improved and she doesn't feel as rundown as she did. Pt denies any fevers, chills, night sweats. Denies CP, SOB, N/V. 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 She is tolerating her PO intact thus far. Pt denies any issues with urination. ROS ROS: See above for pertinent positives & negatives. A total of 10 systems reviewed and were otherwise negative. Physical Exam Physical Exam: Vital Signs Temp 37.1 C 01/02/22 06:39 Pulse 87 01/02/22 06:39 Resp 18 01/02/22 06:39 BP 105/69 01/02/22 06:39 Pulse Ox 95 01/02/22 06:39 O2 Del Method RA 01/02/22 06:39 General: Well-appearing, in no significant distress. Converses appropriately, calm, cooperative. HEENT: No scleral icterus, PERRLA, neck supple. Atraumatic. Normocephalic. Multiple face piercings. Cardiovascular: S1, S2 regular rate. No murmur, gallop, S3, S4. Radial and DP pulses +2 palp, bilaterally. Pulmonary: Clear to auscultation bilaterally, normal work of breathing. Abdomen: Soft, general tenderness throughout, nondistended, hyperactive bowel sounds. Musculoskeletal: Atraumatic, no peripheral edema. Neurologic: Patient awake alert and oriented x 3, full strength in all 4 extremities. Wears glasses. Skin: Warm, dry, no rash Results Results: Short CBC 01/02/22 05:37 WBC 7.76 Hgb 12.1 Hct 35.4 Plt Count 226 BMP 01/02/22 05:37 Sodium 135 L Potassium 3.2 L Chloride 103 Carbon Dioxide 23 BUN 4 L Creatinine 0.52 L Glucose 72 Calcium 8.1 L Liver Function 01/02/22 05:37 Total Bilirubin 0.5 AST 338 H ALT 449 H Alkaline Phosphatase 155 H Albumin 3.[address] WITH IV CONTRAST CT DOSE: 824.88 mGycm HISTORY: Acute generalized abdominal pain with diarrhea diarrhea x10 days TECHNIQUE: Multiaxial CT images of the abdomen and pelvis were performed following the IV administration of 86 cc of Optiray, A dose lowering technique was utilized adhering to the principles of ALARA. COMPARISON STUDY: None. FINDINGS: Trace pleural effusions, left greater the right. Subsegmental groundg lass opacities favor atelectasis. No pneumatosis or pneumoperitoneum. The spleen is mildly enlarged, 14 cm. Unremarkable pancreas, gallbladder and adrenal glands. The liver is within normal limits. Patency of the hepatic and portal veins. Unremarkable kidneys. No hydronephrosis. Decompressed urinary bladder. Uterus and adnexa are within normal limits. Aorta and IVC are unremarkable. Small amount of free pelvic fluid. Subcentimeter and borderline enlarged lymph nodes are present within the pelvis and right lower quadrant mesentery. There is mild diffuse wall thickening throughout the colon with scattered large and small bowel air-fluid levels. Minimal colonic diverticulosis. The terminal ileum is unremarkable. The visualized appendix appears noninflamed. No acute fracture. Mild lumbar levoscoliosis. IMPRESSION: 1. No bowel obstruction or pneumoperitoneum. 2. Mild diffuse wall thickening throughout the large bowel suggestive of a nonspecific colitis, likely infectious or inflammatory. 3. Scattered small and large bowel air-fluid levels suggest enteritis with diarrheal illness. 4. Borderline enlarged lymph nodes of the abdomen and pelvis may be reactive. 5. No CT evidence of acute appendicitis. 6. Trace pleural effusions. ACT 112: Negative or not required by law. A&P A&P: 1. C. Diff colitis: Per pt.first occurence. Pt has recent history of multiple antibiotic regimens. Oral vanco regimen. 2. Dehydration/hypokalemia/ketonuria: Pt continues on IV NSS at 125ml/hr. Tolerating liquids at this point, will advance diet as pt's GI symptoms improve. Potassium 3.2 on the am labs, cont to monitor BMP. 3. Transaminitis: Trend LFTs, coags daily. LFTs imrpoving. Hepatitis panel pending. Pt denies ETOH use, not on hepatotoxic medications, no gallbladder involvement on imaging. 5. ADHD: Continue methylphenidate daily. Symptoms well controlled on regimen. 6. Allergy induced asthma: Continue montelukast daily. 7. Barrets Esophagus/GERD: Continue omeprazole. Pt states symptoms well controlled, denies problems with swallowing currently. Updated Medication List Medication Instructions Recorded Confirmed Type methylphenidate HCl 30 mg biphasic 30 mg PO QAM 12/22/19 01/01/22 History 30-70 capsule,extended release montelukast 10 mg tablet 10 mg PO HS 12/22/19 01/01/22 History (Singulair) multivitamin 1 tab PO QAM 12/22/19 01/01/22 History omeprazole 20 mg capsule,delayed 20 mg PO QAM 12/28/21 01/01/22 History release cetirizine 10 mg tablet (Zyrtec) 10 mg PO HS 01/01/22 01/01/22 History diphenhydramine HCl 25 mg capsule 50 mg PO .Q 4-6HOURS PRN Allergic 01/01/22 01/01/22 History (Benadryl) Reaction epinephrine 0.3 mg/0.3 mL 0.3 mg IM UD PRN Allergic Reaction 01/01/22 01/01/22 History injection, auto-injector (EpiPen)
[2022-01-03] MEDS: RASPBERRY SYRUP 5 ML UDP PO SCH ×2 (05:55→11:58)
[2022-01-03] MEDS: VANCOMYCIN HCL 125 MG/2.5ML SOLN PO SCH ×2 (05:55→11:57)
[2022-01-03 08:26] LABS: Hematocrit (blood only) 35.3 % (34.1-44.9); Hemoglobin 12.1 g/dl (12.0-16.0); Mean Corpuscular Hemoglobin 27.4 pg (25.0-34.0); Mean Corpuscular Hgb Conc 34.3 g/dL (32.0-36.0); Mean Corpuscular Volume 79.9 fL (80.0-100.0); Mean Platelet Volume 10.1 fL (9.4-12.3); Platelet Count 244 K/uL (130-400); RDW Coefficient of Variation 13.3 % (11.5-14.5); RDW Standard Deviation 38.9 fL (36.4-46.3); Red Blood Count 4.42 M/uL (3.93-5.22); White Blood Count 9.81 K/ul (4.8-10.8)
[2022-01-03] MEDS: METHYLPHENIDATE HCL 10 MG TABLET PO SCH (08:33)
[2022-01-03] MEDS: MULTIVITAMIN TAB PO SCH (08:34)
[2022-01-03] MEDS: PANTOprazole 40 MG TAB PO SCH (08:34)
[2022-01-03 09:09] LABS: Alanine Aminotransferase 370 U/L (7-52); Albumin Globulin Ratio 1.1 (0.9-2); Albumin Level 3.4 gm/dl (3.4-5.0); Alkaline Phosphatase 169 U/L (34-104); Anion Gap 8 (3-11); Aspartate Aminotransferase 219 U/L (13-39); BUN Creatinine Ratio 3.6 (10-20); Bilirubin,Total 0.5 mg/dl (0.2-1.0); Blood Urea Nitrogen 2 mg/dl (6-23); Calcium 8.3 mg/dl (8.5-10.1); Carbon Dioxide 22 mmol/L (21-32); Chloride 106 mmol/L (98-107); Creatinine Clr Calc Pharmacy 159.6 ml/min; Est GFR (African American) > 150.0 ml/min; Est GFR (Non-African American) 133.1 ml/min; Globulin 3.2 gm/dl (2.5-4.0); Glucose 80 mg/dl (70-99(Fasting)); Potassium 3.6 mmol/L (3.5-5.1); Sodium 136 mmol/L (136-145); Total Protein 6.6 gm/dl (6.0-8.3)
[2022-01-03 12:02] LABS: HBSAG NON-REACTIVE (NON-REACTIVE); Hepatitis A Antibody IgM NON-REACTIVE (NON-REACTIVE); Hepatitis B Core Antibody IgM NON-REACTIVE (NON-REACTIVE)
--- NOTE | 2022-01-03 16:11 | Discharge Summary ---
Date of Service January 03, 2022 Admission HPI Per Admitting Provider History obtained from patient, family, and records. Medical history significant for ADD, bronchial asthma, eosinophilic esophagitis. 1 week history of watery diarrhea symptoms with some lower abdominal cramping, nausea, vomiting symptoms. Transient hematochezia symptoms. Denies dysuria. Low-grade fever at home. No known sick contacts, no out-of-town travel, unusual restaurant food. Augmentin course last month for possible ear infection. Patient seen at the ER 4 days ago. LFTs noted to be abnormal. Denies Tylenol overuse. Tattoo on a hand months ago. Patient discharged on Keflex for possible UTI. Patient returned to ER for worsening symptoms. Medical History as above Surgical History : Dental surgery Family History : Brain cancer; negative IBD Personal/Social history : Non-smoker, no EtOH intake, currently unemployed Admission Exam Per Admitting Provider GENERAL: Comfortable, obese, pleasant, slightly anxious, no respiratory distress SKIN: Normal color, warm HEENT: [place] palpebral conjunctivae, no ptosis, dry buccal mucosa NECK : Supple, no tenderness CHEST : CTA, no tenderness HEART : RRR, no obvious murmurs ABDOMEN: Some distention, hypogastric tenderness EXTREMITIES : No LE swelling/tenderness, no other conspicuous deformities noted NEUROLOGIC : Coherent, no facial asymmetry, no other gross focality Principal Diagnosis C. difficile colitis Discharge Exam Constitutional WD/WN, vitals as above no acute distress Respiratory normal respiratory effort, lungs clear to auscultation Cardiovascular Rate/Rhythm: regular rate and regular rhythm Gastrointestinal (Abdomen) Percussion/Palpation: abdomen soft; abdomen nontender Skin no rashes, warm and dry Neurologic no focal motor deficits Psychiatric A+Ox3, euthymic affect Discharge Data Allergies Allergy/AdvReac Type Severity Reaction Status Date / Time cashew nut Allergy Severe throat/lip Verified 01/01/22 20:40 swelling pistachio nut Allergy Severe throat/lip Verified 01/01/22 20:40 swelling Ordered Studies Laboratory Results WBC 9.81 K/ul (4.8-10.8) 01/03/22 08:15 RBC 4.42 M/uL (3.93-5.22) 01/03/22 08:15 Hgb 12.1 g/dl (12.0-16.0) 01/03/22 08:15 Hct 35.3 % (34.1-44.9) 01/03/22 08:15 MCV 79.9 fL (80.0-100.0) L 01/03/22 08:15 MCH 27.4 pg (25.0-34.0) 01/03/22 08:15 MCHC 34.3 g/dL (32.0-36.0) 01/03/22 08:15 RDW Std Deviation 38.9 fL (36.4-46.3) 01/03/22 08:15 RDW Coeff of Bob 13.3 % (11.5-14.5) 01/03/22 08:15 Plt Count 244 K/uL (130-400) 01/03/22 08:15 MPV 10.1 fL (9.4-12.3) 01/03/22 08:15 Neutrophils % (Manual) 35 % 01/02/22 05:37 Lymphocytes % (Manual) 26 % 01/02/22 05:37 Reactive Lymphs % (Man) 28 % 01/02/22 05:37 Monocytes % (Manual) 8 % 01/02/22 05:37 Eosinophils % (Manual) 2 % 01/02/22 05:37 Basophils % (Manual) 2 % 01/02/22 05:37 Neutrophils # (Manual) 2.72 K/uL (1.4-6.5) 01/02/22 05:37 Lymphocytes # (Manual) 2.02 K/uL (1.2-3.4) 01/02/22 05:37 Reactive Lymphs # 2.17 K/uL 01/02/22 05:37 Monocytes # (Manual) 0.62 K/uL (0.24-0.82) 01/02/22 05:37 Eosinophils # (Manual) 0.16 K/uL (0-0.50) 01/02/22 05:37 Basophils # (Manual) 0.16 K/uL (0-0.2) 01/02/22 05:37 Echinocytes 1+ 01/01/22 11:41 PT 12.6 Seconds (9.0-12.0) H 01/02/22 05:37 INR 1.2 (0.9-1.1) H 01/02/22 05:37 Sodium 136 mmol/L (136-145) 01/03/22 08:15 Potassium 3.6 mmol/L (3.5-5.1) 01/03/22 08:15 Chloride 106 mmol/L (98-107) 01/03/22 08:15 Carbon Dioxide 22 mmol/L (21-32) 01/03/22 08:15 Anion Gap 8 (3-11) 01/03/22 08:15 BUN 2 mg/dl (6-23) L 01/03/22 08:15 Creatinine 0.55 mg/dl (0.6-1.2) L 01/03/22 08:15 Est Cr Clr Drug Dosing 159.6 ml/min 01/03/22 08:15 Est GFR ( Amer) > 150.0 ml/min 01/03/22 08:15 Est GFR (Non-Af Amer) 133.1 ml/min 01/03/22 08:15 BUN/Creatinine Ratio 3.6 (10-20) L 01/03/22 08:15 Glucose 80 mg/dl (70-99(Fasting)) 01/03/22 08:15 Lactate 0.8 mmol/L (0.4-2.0) 01/01/22 11:41 Calcium 8.3 mg/dl (8.5-10.1) L 01/03/22 08:15 Magnesium 2.1 mg/dl (1.7-2.4) 01/01/22 11:41 Total Bilirubin 0.5 mg/dl (0.2-1.0) 01/03/22 08:15 AST 219 U/L (13-39) H 01/03/22 08:15 ALT 370 U/L (7-52) H 01/03/22 08:15 Alkaline Phosphatase 169 U/L (34-104) H 01/03/22 08:15 Total Protein 6.6 gm/dl (6.0-8.3) 01/03/22 08:15 Albumin 3.4 gm/dl (3.4-5.0) 01/03/22 08:15 Globulin 3.2 gm/dl (2.5-4.0) 01/03/22 08:15 Albumin/Globulin Ratio 1.1 (0.9-2) 01/03/22 08:15 Lipase 40 U/L (11-82) 01/01/22 11:41 Urine Color Dark Yellow 01/01/22 12:20 Urine Appearance Cloudy (Clear) A 01/01/22 12:20 Urine pH 6.0 (4.5-7.5) 01/01/22 12:20 Ur Specific [place] 1.020 (1.000-1.030) 01/01/22 12:20 Urine Protein 1+ (Negative) H 01/01/22 12:20 Urine Glucose (UA) Negative (Negative) 01/01/22 12:20 Urine Ketones 4+ (Negative) H 01/01/22 12:20 Urine Blood 3+ (Negative) H 01/01/22 12:20 Urine Nitrite Negative (Negative) 01/01/22 12:20 Urine Bilirubin Negative (Negative) 01/01/22 12:20 Urine Urobilinogen Negative (Negative) 01/01/22 12:20 Ur Leukocyte Esterase Trace (Negative) H 01/01/22 12:20 Urine WBC (Auto) 5-10 /hpf (0-5) H 01/01/22 12:20 Urine RBC (Auto) 5-10 /hpf (0-4) H 01/01/22 12:20 U Hyaline Cast (Auto) 5-10 /lpf (0-5) H 01/01/22 12:20 U Epithel Cells (Auto) >30 /lpf (0-5) H 01/01/22 12:20 Urine Bacteria (Auto) Negative (Negative) 01/01/22 12:20 POC Ur Test NEG (NEG) 01/01/22 12:36 Stl C. cayetanensis PCR Not Detected (NotDetected) 01/01/22 19:45 Stool Rotavirus A PCR Not Detected (NotDetected) 01/01/22 19:45 Stl Adenov F 40/41 PCR Not Detected (NotDetected) 01/01/22 19:45 Stool Astrovirus (PCR) Not Detected (NotDetected) 01/01/22 19:45 Stool Campylobacter PCR Not Detected (NotDetected) 01/01/22 19:45 Stl C. diff Tox B Gene Positive Cdiff Gene (Neg) H 01/01/22 19:45 Stl C.difficile Tox A&B Positive Cdiff Toxin (Negative) A* 01/01/22 19:45 Stool Cryptosporidium PCR Not Detected (NotDetected) 01/01/22 19:45 Stl E.coli Shiga Tox PCR Not Detected (NotDetected) 01/01/22 19:45 Stl Enterotoxigenic E PCR Not Detected (NotDetected) 01/01/22 19:45 Stool EPEC (PCR) Not Detected (NotDetected) 01/01/22 19:45 Stool EAEC (PCR) Not Detected (NotDetected) 01/01/22 19:45 Stl E. histolytica PCR Not Detected (NotDetected) 01/01/22 19:45 Stool Giardia Lamblia PCR Not Detected (NotDetected) 01/01/22 19:45 Stool Salmonella PCR Not Detected (NotDetected) 01/01/22 19:45 Stool Sapovirus (PCR) Not Detected (NotDetected) 01/01/22 19:45 Stl P. shigelloides PCR Not Detected (NotDetected) 01/01/22 19:45 Stl Shigella/EIEC PCR Not Detected (NotDetected) 01/01/22 19:45 St Y.enterocolitica PCR Not Detected (NotDetected) 01/01/22 19:45 Stool Vibrio (PCR) Not Detected (NotDetected) 01/01/22 19:45 Stl Vibrio cholerae PCR Not Detected (NotDetected) 01/01/22 19:45 Stl Norovirus GI/GII PCR Not Detected (NotDetected) 01/01/22 19:45 Acetaminophen < 3 ug/ml (10-30) L 01/01/22 20:31 Hepatitis A IgM Ab NON-REACTIVE (NON-REACTIVE) 01/02/22 05:37 Hep Bs Antigen NON-REACTIVE (NON-REACTIVE) 01/02/22 05:37 Hep Bs Ag Confirmation TNP 01/02/22 05:37 Hep B Core IgM Ab NON-REACTIVE (NON-REACTIVE) 01/02/22 05:37 Hepatitis C Ab (EIA) NON-REACTIVE (NON-REACTIVE) 01/02/22 05:37 Hep C Ab Signal/Cutoff 0.30 (<1.00) 01/02/22 05:37 SARS-CoV-2, RNA, NAAT NEGATIVE (NEGATIVE) 01/01/22 21:22 Impressions Abdomen/Pelvis CT 01/01/22 11:[address] WITH IV CONTRAST CT DOSE: 824.88 mGycm HISTORY: Acute generalized abdominal pain with diarrhea diarrhea x10 days TECHNIQUE: Multiaxial CT images of the abdomen and pelvis were performed following the IV administration of 86 cc of Optiray, A dose lowering technique was utilized adhering to the principles of ALARA. COMPARISON STUDY: None. FINDINGS: Trace pleural effusions, left greater the right. Subsegmental groundglass opacities favor atelectasis. No pneumatosis or pneumoperitoneum. The spleen is mildly enlarged, 14 cm. Unremarkable pancreas, gallbladder and adrenal glands. The liver is within normal limits. Patency of the hepatic and portal veins. Unremarkable kidneys. No hydronephrosis. Decompressed urinary bladder. Uterus and adnexa are within normal limits. Aorta and IVC are unremarkable. Small amount of free pelvic fluid. Subcentimeter and borderline enlarged lymph nodes are present within the pelvis and right lower quadrant mesentery. There is mild diffuse wall thickening throughout the colon with scattered large and small bowel air-fluid levels. Minimal colonic diverticulosis. The terminal ileum is unremarkable. The visualized appendix appears noninflamed. No acute fracture. Mild lumbar levoscoliosis. IMPRESSION: 1. No bowel obstruction or pneumoperitoneum. 2. Mild diffuse wall thickening throughout the large bowel suggestive of a nonspecific colitis, likely infectious or inflammatory. 3. Scattered small and large bowel air-fluid levels suggest enteritis with diarrheal illness. 4. Borderline enlarged lymph nodes of the abdomen and pelvis may be reactive. 5. No CT evidence of acute appendicitis. 6. Trace pleural effusions. ACT 112: Negative or not required by law. The above report was generated using voice recognition software. It may contain grammatical, syntax or spelling errors. Electronically signed by: Ike Bolton M.D. 01/01/2022 1:40 PM Hospital Course (1) C. difficile colitis: Presented with 2-3 weeks of diarrhea, nausea, and abdominal pain. Patient reports being on several courses of antibiotics over the past few months for ear infections. Was seen in ED on 12/28, diagnosed with UTI and placed on cephalexin. C. Diff + on admission CT abd/pelvis: 1. No bowel obstruction or pneumoperitoneum. 2. Mild diffuse wall thickening throughout the large bowel suggestive of a nonspecific colitis, likely infectious or inflammatory. 3. Scattered small and large bowel air-fluid levels suggest enteritis with diarrheal illness. 4. Borderline enlarged lymph nodes of the abdomen and pelvis may be reactive. 5. No CT evidence of acute appendicitis. 6. Trace pleural effusions. First episode of C. Diff Patient treated conservatively with IVF, clear liquid diet. Tolerating regular diet on day of discharge. Will discharge on p.o. Vanco to complete 10-day course (2) Hypokalemia: K+ 3.2 --> 3.6 Likely due to GI loss w/ diarrhea Replace, follow electrolytes (3) Transaminitis: T. bili 0.7 --> 0.5 --> 0.5 AST 369 --> 338 --> 219 ALT 571--> 449 --> 370 Alk phos 195 --> 155 --> 169 Likely 2/2 acute illness Hepatitis panel negative Follow LFTs, consider GI eval if not improving (4) ADHD: Continue methylphenidate (5) GERD (gastroesophageal reflux disease): (6) Barretts esophagus: Continue PPI Total Time Total Time Spent Total Time Spent (In Minutes): 35 Discharge Plan Discharge Items Patient Disposition: Home - Self-Care Reason For Visit: Abdominal pain, nausea, diarrhea Discharge Diagnosis: C. Diff infection Activity: Resume your previous activity Non-emergency contact: Primary Care Provider Call non-emergency contact if: you have any medication questions Follow-up/Referrals: Silvana Chowdhury MD [Primary Care Provider] - 01/08/22 10:00 am ([facility]) Diet: Regular and Other - See Diet Comment Diet Comment: soft diet, advance as tolerated Addtl Attending Provider Instructions: You came to the hospital for evaluation of abdominal pain, nausea, diarrhea. You were found to have C. difficile colitis --infection and inflammation of the colon. C. difficile is a bacterial infection that can be caused by use of antibiotics. Your liver function tests were mildly elevated during admission, likely secondary to illness and infection. Hepatitis testing was negative. Your PCP can follow-up liver function test to monitor for improvement. You will be discharged on oral vancomycin 125 mg every 6 hours to complete a 10 day course. Recommend use of probiotics or yogurt when on antibiotics in the future. Consider ENT evaluation for recurrent ear infections. Continue all other medications as previously prescribed. It was a pleasure taking care of you. If you need to reach a member of the [facility] hospitalist team at [facility], please call [phone]. SHORTY Dominguez Pending Studies at Discharge: No Stand-Alone Forms: My [facility] Health, Smoking Cessation Medications and DC Order Prescriptions: New vancomycin [Vancocin] 125 mg capsule 125 mg PO Q6H Qty: 34 0RF Continued methylphenidate HCl 30 mg Capsule, Er Biphasic 30-70 30 mg PO QAM montelukast [Singulair] 10 mg Tablet 10 mg PO HS multivitamin Tablet 1 tab PO QAM omeprazole 20 mg capsule,delayed release(DR/EC) 20 mg PO QAM cetirizine [Zyrtec] 10 mg Tablet 10 mg PO HS diphenhydramine HCl [Benadryl] 25 mg Capsule 50 mg PO .Q 4-6HOURS PRN (Reason: Allergic Reaction) epinephrine [EpiPen] 0.3 mg/0.3 mL Auto-Injector 0.3 mg IM UD PRN (Reason: Allergic Reaction) Rx Instructions: place orange end against outer thigh,press firmly,hold in place for 10 seconds and go to emergency room Discharge Orders: Discharge Order (Routine); Ordered 01/03/22 Ordered By: Alexandra Leon/Other Patient Handouts: Clostridium Difficile Infection Admission Data Admit Date/Time: 01/01/22 20:46 Attending Provider: Hayden Fuentes Admit Provider: John Trammell Primary Care Provider: Silvana Chowdhury Other Interventions: Discharge Summary Assessment (RN) Last Done: 01/03/22 13:23 Supervising Physician Co-Signing Physician Notes delayed entry date of service noted above Attending Addendum: care coordinated with SHORTY Boyce please refer to her notes for full details, I agree with her notes patient seen and examined, records reviewed by myself as well on exam, patient seen resting in bed, comfortable in good spirits had 2 soft stools no abdominal pain, nausea tolerating clear liquids no other symptoms diagnoses and plan of care as per SHORTY Boyce's notes Hayden Fuentes MD
== END 2022-01-03 14:07 | disposition home or self-care (01) ==
LOC: ED 11:13 → 3E 11:13

== ENCOUNTER 2024-04-22 15:50 | Inpatient (IN) ==
[2024-04-22 16:55] LABS: Basophils # (auto) 0.11 K/uL (0.00-0.20); Basophils % (auto) 1.1 %; Eosinophils # (auto) 0.26 K/uL (0.00-0.50); Eosinophils % (auto) 2.7 %; Hematocrit (blood only) 40.3 % (37.0-47.0); Hemoglobin 14.1 g/dl (12.0-16.0); Immature Granulocytes # (auto) 0.03 K/uL (0.01-0.20); Immature Granulocytes % (auto) 0.3 %; Lymphocytes # (auto) 3.36 K/uL (1.20-3.40); Lymphocytes % (auto) 34.5 %; Mean Corpuscular Volume 82.9 fL (80.0-100.0); Mean Platelet Volume 9.9 fL (9.4-12.4); Monocytes # (auto) 0.72 K/uL (0.11-0.59); Monocytes % (auto) 7.4 %; Neutrophils # (auto) 5.25 K/uL (1.40-6.50); Platelet Count 461 K/uL (130-400); RDW Coefficient of Variation 11.9 % (11.5-14.5); RDW Standard Deviation 36.2 fL (36.4-46.3); Red Blood Count 4.86 M/uL (4.20-5.40); White Blood Count 9.73 K/ul (4.8-10.8)
[2024-04-22 17:06] LABS: Appearance Urine Cloudy (Clear); Bacteria Urine Automated None Seen (None Seen); Bilirubin Urine Negative (Negative); Blood Urine 3+ (Negative); Color Urine Dark Yellow; Glucose Urine UA Negative (Negative); Ketones Urine 2+ (Negative); Leukocyte Esterase Urine Negative (Negative); Mucus Urine Present (None Prsent); Nitrite Urine Negative (Negative); Protein Urine Trace (Negative); Specific Gravity Urine 1.036 (1.000-1.030); Urobilinogen Urine Negative (Negative); WBC Urine Automated 0-5 /hpf (0-5)
[2024-04-22 17:10] LABS: Albumin Globulin Ratio 1.6 (0.9-2); BUN Creatinine Ratio 19.5 (10-20); Bilirubin,Total 0.7 mg/dl (0.2-1.0); Calcium 9.7 mg/dl (8.6-10.3); Globulin 3.1 gm/dl (2.5-4.0); Potassium 3.3 mmol/L (3.5-5.1); Total Protein 8.1 gm/dl (6.0-8.3)
[2024-04-22 17:25] LABS: Thyroid Stimulating Hormone 1.02 uIu/ml (0.300-4.500)
[2024-04-22 17:26] LABS: Amphetamines+Metham, Urine Neg (Neg); Barbiturates, Urine Neg (Neg); Benzodiazepine, Urine Neg (Neg); Cocaine, Urine Neg (Neg); Fentanyl, Urine Neg (Neg); MDMA (Ecstacy), Urine Pos (Neg); Marijuana, Urine Pos (Neg); Methadone, Urine Neg (Neg); Opiate, Urine Neg (Neg); Phencyclidine, Urine Neg (Neg)
[2024-04-22 17:26] LABS: Acetaminophen < 3 ug/ml (10-30); Salicylate < 3.0 mg/dl (3.0-30)
[2024-04-22 18:09] LABS: Pregnancy Test, Urine Negative (Negative)
--- NOTE | 2024-04-22 18:17 | Emergency Department Note ---
Impression & Plan Suicidal ideation ED Provider Note NAME: EDMAR DIAZ AGE: 24 SEX: F : 2000 ARRIVES VIA: Walk-In INFORMANT: Patient, ED PROVIDER(S): Loreto Feliciano MD CHIEF COMPLAINT: Suicidal ideation HPI: This is a 24-year-old female presenting for suicidal ideation. Patient is with her mother and boyfriend. She states that she has been fairly depressed and began having thoughts of suicide. She started with plan to overdose on Benadryl. She notes that otherwise she has no specific trigger. No medical complaints today such as recent cutting, falls, nausea vomiting, diarrhea, chest pain or shortness of breath. ROS: See above HPI for pertinent positives & negatives. A total of 10 systems reviewed and were otherwise negative. PAST MEDICAL HISTORY: See Below PAST SURGICAL HISTORY: See Below FAMILY HISTORY: See Below SOCIAL HISTORY: See Below HOME MEDICATIONS: See Below ALLERGIES: See Below VITALS: See Below PHYSICAL EXAMINATION: General: resting comfortably in no acute distress Head: Normocephalic and atraumatic Eyes: Normal inspection, extraocular muscles intact Ear, nose, throat: Normal external exam Neck: Normal range of motion Respiratory: speaking in full sentences, symmetric chest rise, no respiratory distress Cardiovascular: Regular rate/rhythm Extremities: moves all extremities Neuro: The patient awake and alert, appropriately conversive, symmetric faces, no focal deficits MEDICAL DECISION MAKING: This is a 24-year-old female presented for suicidal ideation. Patient has SI with plan. She is depressed. Otherwise no medical complaints -Bloodwork is reviewed showing no significant leukocytosis, anemia, electrolyte or creatinine abnormality -Minimal hypokalemia -UDS notes marijuana/MDMA -Urinalysis reveals signs of contamination versus infection, no current symptoms -Patient medically clear at this time -Patient admitted to 3 S. Differential diagnosis: SI, psychosis, depression Independent History obtained from: Mother, boyfriend Diagnostics interpreted by me: ECG: None Cardiac Monitoring: An order was placed for continuous cardiac monitoring. The monitor shows a rate of 77 with sinus rhythm. Past Med/Surg History Problem List (Updated 04/22/24 @ 22:47 by Loreto Feliciano MD) Suicidal ideation (Acute) Barretts esophagus GERD (gastroesophageal reflux disease) ADHD C. difficile colitis Transaminitis (Acute) Encounter for pre-operative examination Medical History (Updated 04/22/24 @ 22:47 by Loreto Feliciano MD) History of esophageal dilatation recently done 11/21/2019 Allergy-induced asthma inhaler prn Surgical History History of esophagogastroduodenoscopy (EGD) recently done 11/21/2019 @ [facility] History of wisdom tooth extraction Family History Family/Other Family history of diabetes mellitus cousin Grandfather (Maternal) Family history of diabetes mellitus Other No family history of adverse response to anesthesia Social History Smoking Status: Never smoker Second Hand Exposure: No; Do You Dip or Chew Tobacco: No; Hx Alcohol Use: No Hx Substance Use: No Preferred Language: Greek 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 Beliefs That Will Affect Care: None Current Living Situation: Parent Current Living Situation Comment: Lives at home with parents Feels Safe at Home: Yes Gender Identity: Female Assistive Devices: None Allergies Allergies Allergy/AdvReac Type Severity Reaction Status Date / Time cashew nut Allergy Severe throat/lip Verified 01/01/22 20:40 swelling pistachio nut Allergy Severe throat/lip Verified 01/01/22 20:40 swelling Home Meds Home Medications Medication Instructions Recorded Confirmed bupropion HCl 300 mg 24 hr tablet, 300 mg PO DAILY 04/22/24 04/22/24 extended release buspirone 10 mg tablet 10 mg PO BID 04/22/24 04/22/24 cholecalciferol (vitamin D3) 50 50 mcg PO DAILY 04/22/24 04/22/24 mcg (2,000 unit) tablet (Vitamin D3) cranberry fruit 450 mg tablet 450 mg PO DAILY 04/22/24 04/22/24 (cranberry) Results & Data (ED) Vital Signs Vital Signs - 24 hr 04/22/24 16:07 04/22/24 18:10 04/22/24 19:06 Temperature 36.9 C 36.7 C 36.7 C Temperature Source Temporal Artery Scan Oral Oral Pulse Rate 88 Pulse Rate [Left Finger] 72 76 Pulse Rhythm Regular Pulse Rhythm [Left Finger] Regular Pulse Strength [Left Finger] Normal Respiratory Rate 20 16 16 Respiratory Effort / Characteristics Non-Labored Spontaneous Non-Labored Spontaneous Respiratory Depth Normal Normal Normal Respiratory Pattern Regular Regular Blood Pressure 128/91 Blood Pressure [Left Arm] 113/79 112/77 Blood Pressure Mean 103 Blood Pressure Mean [Left Arm] 90 88 Blood Pressure Position Sitting Blood Pressure Position [Left Arm] Sitting Pulse Oximetry 97 97 97 Oxygen Delivery Method Room Air Room Air Room Air Sepsis Recent Fever Within 48 Hours No Sepsis New/Unexplained Change in Mental Status No Sepsis Action Taken by Nursing No Action Required 04/22/24 21:31 Temperature 36.9 C Temperature Source Oral Pulse Rate 77 Pulse Rate [Left Finger] Pulse Rhythm Pulse Rhythm [Left Finger] Pulse Strength [Left Finger] Respiratory Rate 18 Respiratory Effort / Characteristics Respiratory Depth Respiratory Pattern Blood Pressure 104/68 Blood Pressure [Left Arm] Blood Pressure Mean Blood Pressure Mean [Left Arm] Blood Pressure Position Blood Pressure Position [Left Arm] Pulse Oximetry 96 Oxygen Delivery Method Room Air Sepsis Recent Fever Within 48 Hours Sepsis New/Unexplained Change in Mental Status Sepsis Action Taken by Nursing Laboratory Data 04/22/24 16:28 04/22/24 16:28 Lab Results 04/22/24 04/22/24 04/22/24 Range/Units 16:28 16:30 17:02 WBC 9.73 (4.8-10.8) K/ul RBC 4.86 (4.20-5.40) M/uL Hgb 14.1 (12.0-16.0) g/dl Hct 40.3 (37.0-47.0) % MCV 82.9 (80.0-100.0) fL MCH 29.0 (25.0-34.0) pg MCHC 35.0 (32.0-36.0) g/dL RDW Std Deviation 36.2 L (36.4-46.3) fL RDW Coeff of Bob 11.9 (11.5-14.5) % Plt Count 461 H (130-400) K/uL MPV 9.9 (9.4-12.4) fL Immature Gran % (Auto) 0.3 % Neut % (Auto) 54.0 % Lymph % (Auto) 34.5 % [place] % (Auto) 7.4 % Eos % (Auto) 2.7 % Baso % (Auto) 1.1 % Neut # (Auto) 5.25 (1.40-6.50) K/uL Lymph # (Auto) 3.36 (1.20-3.40) K/uL [place] # (Auto) 0.72 H (0.11-0.59) K/uL Eos # (Auto) 0.26 (0.00-0.50) K/uL Baso # (Auto) 0.11 (0.00-0.20) K/uL Immature Gran # (Auto) 0.03 (0.01-0.20) K/uL Sodium 137 (136-145) mmol/L Potassium 3.3 L (3.5-5.1) mmol/L Chloride 106 (98-107) mmol/L Carbon Dioxide 26 (21-32) mmol/L Anion Gap 5 (3-11) BUN 16 (6-23) mg/dl Creatinine 0.82 (0.6-1.2) mg/dl Est Cr Clr Drug Dosing 101.0 ml/min eGFR 101.74 BUN/Creatinine Ratio 19.5 (10-20) Glucose 84 (70-99(Fasting)) mg/dl Calcium 9.7 (8.6-10.3) mg/dl Total Bilirubin 0.7 (0.2-1.0) mg/dl AST 14 (13-39) U/L ALT 10 (7-52) U/L Alkaline Phosphatase 64 (34-104) U/L Total Protein 8.1 (6.0-8.3) gm/dl Albumin 5.0 (3.4-5.0) gm/dl Globulin 3.1 (2.5-4.0) gm/dl Albumin/Globulin Ratio 1.6 (0.9-2) TSH 1.020 (0.300-4.500) uIu/ml Urine Test Negative (Negative) Salicylates < 3.0 L (3.0-30) mg/dl Acetaminophen < 3 L (10-30) ug/ml Ethyl Alcohol mg/dL < 10.0 (<10.0) mg/dl SARS-CoV-2, RNA, NAAT NEGATIVE (NEGATIVE) Discharge Plan Visit Data Chief Complaint: Mental Health Evaluation Stated Complaint: MEDICAL EVAL ADVISED BY THERAPIST ED Provider: Loreto Feliciano Discharge Problem: Suicidal ideation Patient Disposition: Admitted As Inpatient Discharge Instructions Interventions: ED Discharge Assessment Last Done: 04/22/24 21:31
[2024-04-22] MEDS ORDERED: hydrOXYzine HCl 25 MG TAB PO PRN ×2 (22:04)
[2024-04-22] MEDS ORDERED: MAGNESIUM HYDROXIDE SUSP 30 ML UDC PO PRN (22:04)
[2024-04-22] MEDS ORDERED: BISMUTH SUBSALICYLATE 262 MG CHEW PO PRN (22:04)
[2024-04-22] MEDS ORDERED: ALUMINUM/MAGNESIUM SUSP 30 ML UDC PO PRN (22:04)
[2024-04-22] MEDS ORDERED: SODIUM CHLORIDE 0.65% NA SOLN 45 ML (OCEAN) PRN (22:04)
[2024-04-22] MEDS ORDERED: ACETAMINOPHEN 325 MG TAB PO PRN (22:04)
[2024-04-22] MEDS: busPIRone 5 MG TAB PO SCH (22:49)
--- OUTSIDE RECORDS SUMMARY | 2024-04-23 02:59 | External Medical Summary | Summary of Care ---
Author Name Unknown Organization [facility] Address [address] [place] [address] Phone [phone] Care Team Providers Care Special Services Agent Name Role Phone Silvana Chowdhury MD Primary Care Provider [phone] Reason for Visit * Reason Onset Date Comments Medication Refill 12/27/2023 Encounter Details Date Type Department Care Team (Late st Contact Info) Description 12/27/2023 Refill Psychiatry Jonathan Correa [address] [place] [address] Jahaira Burkett, [address] [place] [address] Allergies Active Allergy Reactions Criticality Noted Date Comments Cashew Nut Oil Edema face/lips/tongue High 7 Pistachio Nut (Diagnostic) Allergy test positive High 11/12/2016 documented as of this encounter (statuses as of 12/27/2023) Medications diphenhydrAMIN E (BENADRYL) 25 MG Capsule Take 2 tablets at onset suspected allergic reaction; may repeat every 4-6 hrs. as needed. 50 Cap 1 7 Active cetirizine (ZYRTEC) 10 MG Tablet Take 1 Tab by mouth every night at bedtime. For allergies and to prevent hives 30 Tab 11 7 Active Multi-Day Oral Tablet Take 1 Tab by mouth daily. Active Albuterol Sulfate HFA 108 (90 Base) MCG/ACT Inhalation Aerosol Solution Inhale 2 Puffs by mouth every 6 hours as needed for Cough, Shortness of Breath or Wheezing. 18 g 1 3 Active EpiPen 2-Isaiah 0.3 MG/0.3ML Injection Solution Auto-injector For a severe reaction: Place orange end against the outer thigh, press firmly, hold in place for 10 seconds and go to the Emergency room. 2 Each 3 3 Active Omeprazole 20 MG Oral Capsule Delayed Release (PriLOSEC)Marcie cations:Other dysphagia Take 1 Capsule by mouth in the morning. Every morning.. 90 Capsule 1 3 Active Fluticasone Propionate 50 MCG/ACT Nasal Suspension (Flonase) Administer 2 Sprays into each nostril in the morning. 48 g 1 3 Active busPIRone HCl 10 MG Oral Tablet (Buspar) TAKE 1 TABLET BY MOUTH TWICE DAILY EVERY MORNING AND BEFORE BEDTIME 60 Tablet 5 4 Active buPROPion HCl ER (XL) 300 MG Oral Tablet Extended Release 24 Hour (Wellbutrin XL) Take 1 Tablet by mouth in the morning. 30 Tablet 4 Active buPROPion HCl ER (XL) 300 MG Oral Tablet Extended Release 24 Hour (Wellbutrin XL) Take 1 Tablet by mouth in the morning. 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/24/2016 Overview (09/24/2016): immediate vomiting, mouth/throat itching/swelling when she ingested some pecan chicken as well as cashews Allergic rhinitis 09/24/2016 Acne vulgaris 05/11/2015 Melanocytic nevus of lower extremity 09/11/2012 Neoplasm of uncertain behavior of skin 3 ADHD (attention deficit hype ractivity disorder), 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 Asthma, mild persistent 03/24/2010 Vapes nicotine containing substance documented as of this encounter (statuses as of 12/27/2023) Resolved Problems Problem Noted Date Diagnosed Date Resolved Date Left ovarian cyst 11/06/2023 11/12/2023 History of cold-induced urticaria 05/11/2015 07/31/2017 Routine child health exam 01/07/2002 Constipation 01/07/2002 01/02/2013 Overview (05/05/2015): ICD-10 update of inactive term documented as of this encounter (statuses as of 12/27/2023) Immunizations Name Administration Dates Next Due COVID-19 mRNA, LNP-s, No Pre serve, 2-Dose Series (Moderna) 02/02/2021,06/14/2020,05/17/2020 HPV Vaccine, 4-Valent 01/02/2013,09/05/2012,06/11 Meningococcal Conjugate Vacc ine (Menactra/Menveo) 11/30/2015,05/23/2010 Pneumococcal Polysaccharide PPV23 (Pneumovax) 03/10/2018 Seasonal Influenza Vac., MDV , IM, 0.5 mL (Fluzone) 01/02/2013,02/20/2012,02/16/2011,01/06,12/05/2007 Seasonal Influenza Virus Vac cine, Unspecified Formulation 12/05/2016,11/30/2015,01/02/2013,02/19,02/16/2011,01/07/2008,12/05/2007 Seasonal Influenza, PF, 6 M & above, IM , (FluLaval or Fluzone) 11/23/2021,02/17/2021,11/23/2019,11/03,03/10/2018,12/05/2016 Seasonal Influenza, Quadriva lent, No Preserve, IM 11/22/2014 Seasonal Influenza, Quadriva lent,with Preserve, 3 yr & above, IM 11/30/2015 TDAP, Age 7 and older, IM (Adacel) 05/23/2010 Varicella Vaccine (Chicken Pox) 05/21/2008 documented as of this encounter Social History Tobacco Use Types Packs/Day Years Used Date Smoking Tobacco: Never Passive Smoke Exposure: Never Smokeless Tobacco: Never Alcohol Use Standard Drinks/Week Comments No 0 (1 standard drink = 0.6 oz pur e alcohol) PHQ-2 Answer Date Recorded PHQ Adult Total Score 2 08/31/2022 Hunger Vital Sign Answer Date Recorded Within the past 12 months, y ou worried that your food would run out before you got the money to buy more. Never true 10/08/19 24 Within the past 12 months, t he food you bought just didn't last and you didn't have money to get more. Never true 10/08/2023 Childcare Answer Date Recorded Do you feel overwhelmed with taking care of a child, family member or friend? No 10/08/2023 Does your family need help f inding childcare? (Household - for ages 0-17 years) Not on file 10/08/2023 Clothing Answer Date Recorded Have you been unable to get clothing when it was really needed? No 10/08/2023 Is your family able to get c lothes or diapers when needed? (Household - for ages 0-17 years) Not on file 10/08/2023 Personal Safety Answer Date Recorded Do you feel unsafe or have concerns for your saf ety? No 10/08/2023 Do you have concerns for you r family's safety? (Household - for ages 0-17 years) Not on file 10/08/2023 Utilities Answer Date Recorded Do you have trouble paying y our heating, water, or electric bill? No 10/08/2023 Is your family able to pay t he heat, water, or electric bill? (Household - for ages 0-17 years) Not on file 10/08/2023 Does your family have access to good internet? (Household - for ages 0-17 years) Not on file 10/08/2023 Employment Status Answer Date Recorded Are you unemployed or without regular income? No 10/08/2023 Does the household have a re gular source of income? (Household - for ages 0-17 years) Not on file 10/08/2023 Social Connections Answer Date Recorded How often do you feel lonely or isolated from those around you? Sometimes 10/08/2023 Financial Resource Strain Answer Date R ecorded Do you have any trouble payi ng for your medications, or do you think you might in the future? No 10/08/2023 Does your family have troubl e paying for medicine? (Household - for ages 0-17 years) Not on file 10/08/2023 Transportation Needs Answer Date Record ed READ ONLY Do you have troubl e getting a ride to medical visits or work? Sometimes True 10/08/2023 Does your family have a hard time getting a ride to doctors visits? (Household - for ages 0-17 years) Not on file 10/08/2023 Has lack of transportation k ept you from medical appointments, meetings, work, or from getting things needed for daily living? Check all that apply. No 024 Do you (or your family) have trouble finding or paying for a ride (transportation)? (Household - for ages 0-17 years) Not on file 10/08/2023 Housing Stability Answer Date Recorded Do you currently live in a s helter or have no steady place to sleep at night? No 10/08/2023 READ ONLY Do you think you a re at risk of becoming homeless? No 10/08/2023 Does your family worry about paying for your home or becoming homeless? (Household - for ages 0-17 years) Not on file 0 10/08/2023 Are you homeless or worried that you might be in the future? No 10/08/2023 Are you (or your family) katt eless or worried that you might be in the future? (Household - for ages 0-17 years) Not on file Food Insecurity Answer Date Recorded Do you need food for this week? No 10/08/2023 Are you able to get enough f ood for your family? (Household - for ages 0-17 years) Not on file 10/08/2023 Does your family need food t his week? (Household - for ages 0-17 years) Not on file 10/08/2023 Do you always have enough fo od for your family? (Household - for ages 0-17 years) Not on file 10/08/2023 Comments No Sex and Gender Information Value Date Recorded Sex Assigned at Female 08/31/2022 1:14 PM EDT Legal Sex Female 5:47 AM EST Gender Identity Female 08/31/2022 1:14 PM EDT Sexual Orientation Bisexual 08/31/2022 1: 14 PM EDT documented as of this encounter Miscellaneous Notes * Telephone Encounter - Jahaira Burkett DO - 12/27/2023 1:21 PM EST Signed Prescriptions: Disp Refills buPROPion HCl ER (XL) 300 MG Oral Tablet E*30 Tab*0 Sig: Take 1 Tablet by mouth in the morning.Authorizing Provider: JAHAIRA BURKETT * Telephone Encounter - Sharmin Chew LPN - 12/27/2023 9:35 AM EST Pharmacy requesting refill on Bupropion . Medication was last filled on 11/28/23 with 0 refills. Patient last seen on 06/10/23 with return appointment scheduled for 01/06/24. Patient had 1 cancelled appointments and 0 NO SHOW appointments. documented in this encounter Plan of Treatment Upcoming Encounters Date Type Department Care Team (Late st Contact Info) Description 2024 10:00 AM EST Telemedicine Psychiatry Jonathan Correa [address] [phone] Jahaira Burkett DO [address] [phone] Health Maintenance Due Date Last Done Comments Pneumococcal Vaccine: Pediat rics (0 to 5 Years) and At-Risk Patients (6 to 64 Years) (2 of 2 - PCV) 03/10/2019 03/10/2018 DTap/Tdap Vaccines (7 - Td o r Tdap) 05/23/2020 05/23/2010, 06/16/2004, 07/10/2000, Additional history exists Depression Monitoring 09/01/2023 08/31/2022 COVID-19 Vaccine (4 - 2023-2 5 season) 2023 02/02/2021, 06/14/2020, 05/17/2020 Influenza Vaccine (FLU shot) (#1) 2023 11/23/2021, 02/17/2021, 11/23/2019, Additional history exists Gonorrhea / Chlamydia Screen 10/08/2024, 10/14/2018, 07/16/2017, Additional history exists Pap Smear 09/05/2026 09/06/2023 Hepatitis B Vaccine Completed 1999, 1999, 1999 HPV (Gardasil) Vaccine Completed 3, 09/05/2012, 06/25/2012 MENINGOCOCCAL (MENACTRA/MENVEO) Completed 11/30/2015, 11/30/2015, 05/23/2010, Additional history exists HIV Screening Discontinued Hepatitis C Screening Discontinued documented as of this encounter Medical Devices Not on filedocumented as of this encounter Advance Directives * Full Code (Latest Code Status on File) Date Activated Date Inactivated Comments 11/06/2023 2:09 PM 11/06/2023 7:55 PM This order r eflects the patients wishes and were consensually agreed upon. Question Answer Comments Discussion of Advance Directives occurred with: Patient Care Teams Special Services Agent Relationship Specialty Start Date End Date Silvana Chowdhury MD [address] [place] [address] PCP - General Internal Medicine 11/21/21 documented as of this encounter
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
[2024-04-23] MEDS: buPROPion XL 300 MG TABCR PO SCH (08:49)
[2024-04-23] MEDS: CHOLECALCIFEROL 25 MCG (1000 UNITS) TAB PO SCH (08:50)
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
[2024-04-23] MEDS: FLUoxetine HCL 10 MG CAP PO SCH (15:06)
[2024-04-23] MEDS: hydrOXYzine HCl 25 MG TAB PO SCH (21:10)
[2024-04-24 09:36] LABS: Chol HDL Ratio 2.9 (0-5)
[2024-04-24 11:39] LABS: Estimated Average Glucose 100 mg/dl; Hemoglobin A1C 5.1 % (4.5-5.6)
[2024-04-24] MEDS: INFLUENZA VACC TS2024-25(6m+)/PF (IIV3) 0.5mL Syr IM ONE (11:59)
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
[2024-04-25 06:31] VITALS: O2SAT 98
[2024-04-25] MEDS: CHOLECALCIFEROL 125 MCG (5,000 UNITS) TAB PO SCH (08:29)
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
[2024-04-26] MEDS: FLUoxetine HCL 20 MG CAP PO SCH (08:37)
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
[2024-04-26 15:27] LABS: MDA negative; MDEA negative; MDMA (Ecstasy) Urine, Confirm negative; Marijuana Quant, GCMS Urine 255 ng/mL (<5)
[2024-04-27 06:42] VITALS: BP 114/77; RESP 16; TEMP 98.2
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
[2024-04-27 11:09] VITALS: PULSE 99
== END 2024-04-27 12:55 | disposition home or self-care (01) | DRG 881 ==
LOC: ED 15:50 → 3S 21:31 → SUATTDRO 21:41